=== PATIENT | female | born 1950 | race Caucasian/White ===

== ENCOUNTER 2022-10-21 22:47 | Inpatient (IN) | payer MEDICARE, OTHER ==
[~2022-10-21] VITALS: Ht 157.5 cm; Wt 65.8 kg
--- NOTE | 2022-10-21 23:00 | NUR ---
GPS ADMISSION NOTE, RECEIVED PATIENT FROM [facility]. PATIENT ARRIVED ON THIS UNIT AT 2300 VIA STRETCHER WITH 2 EMT ESCORTS. PATIENT ADMITTED ON A 5150 HOLD FOR DTS. PER HOLD PATIENT HAS BEEN HAVING INCREASED DEPRESSION AND ANXIETY OVER THE PAST TWO DAYS. PATIENT HAS A PLAN TO JUMP OFF THE THIRD FLOOR OF HER BUILDING. PATIENT HAS NO REGARDS TO HER SAFETY OR THE SAFETY OF OTHERS. THE 5150 WAS REVIEWED AND THE DOCUMENTATION IN THE 5150 HOLD APPEARS TO REFLECT THE PRESENTATION OF THE PATIENT. UPON FACE TO FACE ASSESSMENT PATIENT IS NOTED TO BEING DISHEVELED, DISORGANIZED, CONFUSED, COOPERATIVE, AND NEEDS REDIRECTION. PATIENT IS CURRENTLY LYING IN BED AWAKE, HAS NO S/S OR COMPLAINTS OF PAIN AT THIS TIME. PATIENT IS DISPLAYING NO S/S OF APPARENT DISTRESS. PATIENT BREATHING IS UNLABORED WITH EQUAL RISE AND FALL OF THE CHEST. PATIENT IS ALERT AND ORIENTATED X 3 ON ROOM AIR. PATIENT ASSISTED WITH TURING AND REPOSITIONING Q2HR AND PRN FOR COMFORT AND CIRCULATION. PATIENT HAS NO NEEDS AT THIS TIME. PATIENT DENIES SUICIDE IDEATIONS AND HOMICIDAL IDEATIONS AT THIS TIME. PATIENT REFUSED TO SIGNS ANY PAPER WORK AND IS TO TIRED. PATIENT ADVISED OF HER HOLD AND PATIENT RIGHTS BOOKLET GIVEN. PATIENT IS UNDER THE PSYCHIATRIC CARE OF DR. العراقي AND THE MEDICAL CARE OF CARLOS ALBERTO NAM NP. PATIENT BELONGINGS WERE INVENTORIED AND CHECKED FOR CONTRABAND. ALL CONTRABAND REMOVED AND STORED IN PATIENT HALLWAY LOCKER. PATIENT ADVANCED DIRECTIVES PREFERENCE, IMMUNIZATIONS QUESTIONER, AND NECESSARY PAPERWORK COMPLETED. PATIENT SKIN ASSESSMENT COMPLETED. PATIENT ORIENTATED TO ROOM, FLOOR, AND STAFF WITH ALL QUESTIONS ANSWERED. PATIENT EDUCATED ON THE USE OF THE CALL LIGHT. PATIENT BED SIDE RAILS ARE UP X 2 FOR SAFETY. PATIENT BED IS LOCKED, LOW, AND I WILL CONTINUE TO MONITOR THIS PATIENT Q 15 MIN WITH THE HELP OF STAFF TO MAINTAIN SAFETY.
[2022-10-21 23:50] VITALS: BP 125/75
[2022-10-21] MEDS ORDERED: ASPI-1420 PO (23:58)
[2022-10-21] MEDS ORDERED: CHLO25CA10 PO (23:59)
[2022-10-22] MEDS ORDERED: MAG HYDROX/AL HYDROX/SIMETH 30 ML UDC PO PRN
[2022-10-22] MEDS ORDERED: MAGNESIUM HYDROXIDE 30 ML UDC PO PRN
[2022-10-22] MEDS ORDERED: APIX2.5T PO (00:04)
[2022-10-22] MEDS ORDERED: FERR325T24 PO (00:07)
[2022-10-22] MEDS ORDERED: ESCI10TA PO (00:07)
[2022-10-22] MEDS ORDERED: FOLI-65 PO (00:09)
[2022-10-22] MEDS ORDERED: GABA600T12 PO (00:10)
[2022-10-22] MEDS ORDERED: NALT50TA PO (00:11)
[2022-10-22] MEDS ORDERED: LAMO200T10 PO (00:11)
[2022-10-22] MEDS ORDERED: HYDR-3973 PO (00:12)
[2022-10-22] MEDS ORDERED: SERT100T12 PO (00:13)
[2022-10-22] MEDS ORDERED: ROSU20TA32 PO (00:14)
[2022-10-22] MEDS: TEMAZEPAM 7.5 MG CAPSULE PO PRN (00:20)
[2022-10-22] MEDS ORDERED: BLOOD SUGAR DIAGNOSTIC 1 EACH STRIP IN ONE (00:30)
[2022-10-22 06:49] LABS: BASOPHILS % (AUTO) 0.6 % (0.0-2.0); EOSINOPHILS % (AUTO) 3.3 % (0.0-6.0); HEMATOCRIT 35 % (33-45); HEMOGLOBIN 11.4 g/dL (11.5-14.8); LYMPHOCYTES # (AUTO) 1.3 K/uL (0.8-4.8); LYMPHOCYTES % (AUTO) 29.8 % (20.0-44.0); MEAN CORPUSCULAR HGB CONC 32 g/dl (31.0-36.0); MEAN CORPUSCULAR VOLUME 94 fL (82-100); MONOCYTES # (AUTO) 0.5 K/uL (0.1-1.30); MONOCYTES % (AUTO) 11.2 % (2.0-12.0); NEUTROPHILS # (AUTO) 2.4 K/uL (1.8-8.9); NEUTROPHILS % (AUTO) 55.1 % (43.0-81.0); PLATELET COUNT (AUTO) 265 K/uL (150-450); RED BLOOD CELL COUNT(AUTO) 3.74 MIL/uL (4.0-5.2); WHITE BLOOD COUNT (AUTO) 4.3 K/uL (4.3-11.0)
[2022-10-22 07:07] LABS: CALCIUM, SERUM 8.5 mg/dL (8.5-10.1); CARBON DIOXIDE 26 mmol/L (21-32); CHLORIDE 105 mmol/L (98-107); CREATININE 0.7 mg/dL (0.6-1.3); GLUCOSE 107 mg/dL (74-106); SODIUM SERUM 138 mmol/L (136-145); UREA NITROGEN, BLOOD 12 mg/dL (7-18)
[2022-10-22 07:24] LABS: CHOLESTEROL 187 mg/dL (<200); HDL CHOLESTEROL 58 mg/dL (40-60); LDL 97 mg/dL (0-99); TRIGLYCERIDES 128 mg/dL (30-150)
[2022-10-22 08:00] VITALS: BP 124/73
[2022-10-22] MEDS: GABAPENTIN 300 MG CAPSULE PO SCH ×2 (08:26→16:15)
[2022-10-22] MEDS: ASPIRIN EC 81 MG TABLET.DR PO SCH (08:26)
[2022-10-22] MEDS: FERROUS SULFATE (325 MG) 325 MG/TAB TABLET PO SCH (08:26)
[2022-10-22] MEDS: ATORVASTATIN 40 MG TABLET PO SCH (08:26)
[2022-10-22] MEDS: MULTIPLE VIT (LYCOPENE/FA/MV,CA,IRON,MIN/LUT)1 TAB PO SCH (08:26)
[2022-10-22] MEDS: APIXABAN 2.5 MG TABLET PO SCH ×2 (08:27→16:16)
[2022-10-22] MEDS: HYDROCODONE/APAP 5/325MG TABLET PO PRN ×2 (10:29→22:42)
[2022-10-22] MEDS: ARIPIPRAZOLE 5 MG TABLET PO SCH (15:59)
[2022-10-22 16:00] VITALS: BP 124/72
[2022-10-22] MEDS: ACETAMINOPHEN 325 MG TABLET PO PRN (16:00)
--- NOTE | 2022-10-22 16:05 | NUR ---
RN-NOTES PATIENT REQUESTING TYLENOL FOR HEADACHE,TYLENOL 650 MG P.O GIVEN PRN ORDER. WILL CONT. MONITORING
[2022-10-22] MEDS: SERTRALINE HCL 50 MG TABLET PO SCH (16:18)
--- NOTE | 2022-10-22 16:37 | NUR ---
Initial Discharge Plan: Per pt., she currently resides at home[[address] [place] [address] [address] [facility] [address]; [phone]]alone. Per pt. she is uncertain if she would like to return home alone at this time. Pt. states she is not sure she can care for herself appropriately. Pt. is considering SNF for some time with possibility of returning home. SW will continue to collaborate with psychiatrist to form a safe & proper discharge plan.
--- NOTE | 2022-10-22 16:38 | NUR ---
Family Contact: Per pt., she would like to notify her son, Gumaro Ayers of her whereabouts. However, pt. cannot recall his number and states its in her cellphone. Staff will be alerted of this to possibly assist with getting her sons contact information.
--- NOTE | 2022-10-22 17:05 | NUR ---
RN-NOTES PATIENT LYING IN BED AWAKE,A/O X2 CALM,NO ACUTE DISTRESS NOTED.
--- NOTE | 2022-10-22 17:32 | NUR ---
RN-NOTES PATIENT LYING IN BED AWAKE,A/O X2 ,GUARDED,CALM NO ACUTE DISTRESS NOTE. ENCOURAGED TO ATTEND GROUPS BUT PREFERS TO STAY IN THE ROOM AND REST.COMPLIANT WITH MEDICATIONS.ALL NEEDS ATTENDED AND ANTICIPATED. AMBULATORY WITH WALKER.WILL CONT. MONITORING FOR SAFETY AND BEHAVIOR.WILL ENDORSE TO INCOMING NURSE FOR THE CONTINUITY OF CARE
[2022-10-22 20:00] VITALS: BP 111/71
--- NOTE | 2022-10-22 22:43 | NUR ---
RN NOTE: PAIN PATIENT C/O LEFT LEG PAIN 02/26 AND REQUESTED NORCO AT THIS TIME. PRN NORCO 5-325 MG PO ADMINISTERED PER MD ORDER. WILL CONTINUE TO MONITOR FOR ANY CHANGES.
[2022-10-23 08:00] VITALS: BP 127/70
[2022-10-23] MEDS: ATORVASTATIN 40 MG TABLET PO SCH (08:19)
[2022-10-23] MEDS: ARIPIPRAZOLE 5 MG TABLET PO SCH (08:21)
[2022-10-23] MEDS: GABAPENTIN 300 MG CAPSULE PO SCH ×2 (08:21→16:24)
[2022-10-23] MEDS: FERROUS SULFATE (325 MG) 325 MG/TAB TABLET PO SCH (08:21)
[2022-10-23] MEDS: MULTIPLE VIT (LYCOPENE/FA/MV,CA,IRON,MIN/LUT)1 TAB PO SCH (08:21)
[2022-10-23] MEDS: ASPIRIN EC 81 MG TABLET.DR PO SCH (08:21)
[2022-10-23] MEDS: SERTRALINE HCL 50 MG TABLET PO SCH ×2 (08:21→16:24)
[2022-10-23] MEDS: ACETAMINOPHEN 325 MG TABLET PO PRN ×2 (08:21→16:24)
[2022-10-23] MEDS: APIXABAN 2.5 MG TABLET PO SCH ×2 (08:22→16:25)
[2022-10-23] MEDS: HYDROCODONE/APAP 5/325MG TABLET PO PRN (12:21)
[2022-10-23 16:00] VITALS: BP 116/68
--- NOTE | 2022-10-23 17:44 | NUR ---
RN-NOTES PATIENT IS VISIBLE IN THE UNIT,A/O X2 ,CALM NO ACUTE DISTRESS NOTE..COMPLIANT WITH MEDICATIONS. ABLE TO MAKE NEEDS KNOWN TO THE STAFF. ALL NEEDS ATTENDED AND ANTICIPATED. AMBULATORY WITH WALKER.WILL CONT. MONITORING FOR SAFETY AND BEHAVIOR.WILL ENDORSE TO INCOMING NURSE FOR THE CONTINUITY OF CARE
--- NOTE | 2022-10-23 20:39 | NUR ---
RN NOTES: PATIENT WATCHING TV IN ACTIVITY ROOM . A/OX2. NO APPARENT DISTRESS NOTED, PATIENT EASILY AGITATED/IRRITABLE, PARANOID ,GUARDER NEEDY ,DEMENDING DISORGNIZED,GUARDED,FOCUS ON PRN PAIN MEDS, NEEDS FREQUENTLY REDIRECTIONS, MED COMPLIANT WITH ENCOURAGEMENT ,DENIES SI/HI/AVH AT THIS TIME. SAFETY PRECAUTIONS MAINTAINED. WILL CONTINUE TO MONITOR Q15MIN ROUNDS FOR SAFETY AND BEHAVIOR.
[2022-10-23 21:02] VITALS: BP 117/78
[2022-10-23] MEDS: clonazePAM 0.5 MG TABLET PO PRN (22:45)
--- NOTE | 2022-10-23 22:47 | NUR ---
RN NOTES: ANXIETY PT. C/O FEELING ANXIOUS PARANOID RESTLESS, PRN KLONOPIN 0.5 MG PO GIVEN PER PT. REQUEST , WILL CONTINUE TO MONITOR.
[2022-10-24] MEDS: HYDROCODONE/APAP 5/325MG TABLET PO PRN (00:32)
--- NOTE | 2022-10-24 00:35 | NUR ---
RN NOTES: PAIN PT. C/O LEFT FOOT PAIN 03/28 , PRN NARCO 5-325 MG PO GIVEN PER PT. REQUEST, WILL CONTINUE TO MONITOR.
[2022-10-24 08:00] VITALS: BP 129/75
[2022-10-24] MEDS: ASPIRIN EC 81 MG TABLET.DR PO SCH (08:38)
[2022-10-24] MEDS: ATORVASTATIN 40 MG TABLET PO SCH (08:38)
[2022-10-24] MEDS: ARIPIPRAZOLE 5 MG TABLET PO SCH (08:38)
[2022-10-24] MEDS: FERROUS SULFATE (325 MG) 325 MG/TAB TABLET PO SCH (08:39)
[2022-10-24] MEDS: MULTIPLE VIT (LYCOPENE/FA/MV,CA,IRON,MIN/LUT)1 TAB PO SCH (08:39)
[2022-10-24] MEDS: GABAPENTIN 300 MG CAPSULE PO SCH ×2 (08:39→17:04)
[2022-10-24] MEDS: APIXABAN 2.5 MG TABLET PO SCH ×2 (08:39→17:04)
[2022-10-24] MEDS: SERTRALINE HCL 50 MG TABLET PO SCH ×2 (08:48→17:04)
[2022-10-24] MEDS: ACETAMINOPHEN 325 MG TABLET PO PRN ×3 (10:13→22:13)
[2022-10-24 16:00] VITALS: BP 109/79
[2022-10-24 20:26] VITALS: BP 108/71
[2022-10-24] MEDS: TEMAZEPAM 7.5 MG CAPSULE PO PRN (22:12)
--- NOTE | 2022-10-25 04:37 | NUR ---
RN CLOSING NOTES: ALERT AND ORIENTATED X3 AMBULATES IN THE CORRIDOR FREQUENTLY HER FOCUS IS HER LEFT KNEES PAIN AND REQUESTING PAIN MEDICATION. TYLENOL ORDERED FOR THE KNEE PAIN AND APPEARS EFFECTIVE SHE AMB USING A WALKER AND IS STEADY ON HER LEGS. ENJOYED SNACKS IN THE EARLY NIGHT BEFORE GOING TO BED [facility] CONTACT GETS ALONG WITH HER ROOM MATE COOPERATIVE ABOUT MEDICATION TAKING REQUESTED A SLEEPING PILL AND RESTORIL GIVEN ND EFFECTIVE
[2022-10-25] MEDS: HYDROCODONE/APAP 5/325MG TABLET PO PRN ×2 (05:23→17:54)
[2022-10-25 08:00] VITALS: BP 122/79
[2022-10-25] MEDS: ASPIRIN EC 81 MG TABLET.DR PO SCH (09:36)
[2022-10-25] MEDS: MULTIPLE VIT (LYCOPENE/FA/MV,CA,IRON,MIN/LUT)1 TAB PO SCH (09:36)
[2022-10-25] MEDS: ARIPIPRAZOLE 5 MG TABLET PO SCH (09:36)
[2022-10-25] MEDS: FERROUS SULFATE (325 MG) 325 MG/TAB TABLET PO SCH (09:38)
[2022-10-25] MEDS: ATORVASTATIN 40 MG TABLET PO SCH (09:38)
[2022-10-25] MEDS: GABAPENTIN 300 MG CAPSULE PO SCH ×2 (09:38→16:33)
[2022-10-25] MEDS: APIXABAN 2.5 MG TABLET PO SCH ×2 (09:38→16:33)
[2022-10-25] MEDS: SERTRALINE HCL 50 MG TABLET PO SCH ×2 (09:39→16:34)
[2022-10-25] MEDS: ACETAMINOPHEN 325 MG TABLET PO PRN ×2 (13:33→23:59)
--- NOTE | 2022-10-25 13:35 | NUR ---
NURSE NOTE: PT C/O PAIN AT THIS TIME AND REQUESTED TYL AT THIS TIME. ADMINISTERED ORDERED. PT RICARDO WELL. WILL CONT TO MONITOR.
--- NOTE | 2022-10-25 14:37 | NUR ---
ZEHRA Note: SW met with patient and pt stated that she is worried that she is unable to call her son. She stated that her son's correct number is in her cellphone. SW notified Omar to help with this. Pt stated that she would want to temporarily going to a prison before going back home. SW will help pt find placement.
--- NOTE | 2022-10-25 15:00 | NUR ---
SNF Referral: ZEHRA sent clinicals to [facility] to Amalia felix ([phone]) for placement. SW sent H & P, progress notes, and medication list.
[2022-10-25 16:00] VITALS: BP 147/67
--- NOTE | 2022-10-25 19:03 | NUR ---
PT C/O PAIN ON LEFT KNEE AT 1750 AND REQUESTED NORCO AT THIS TIME. ADMINISTERED ORDERED AND EFFECTIVE. WILL CONT TO MONITOR.
[2022-10-25 21:13] VITALS: BP 123/67
[2022-10-25] MEDS: TEMAZEPAM 7.5 MG CAPSULE PO PRN (22:05)
[2022-10-26] MEDS: HYDROCODONE/APAP 5/325MG TABLET PO PRN ×2 (07:20→19:21)
[2022-10-26 08:00] VITALS: BP 134/76
--- NOTE | 2022-10-26 08:14 | NUR ---
SNF Contact: SW spoke with [facility] to Amalia admin ([phone]) who stated they cannot accept pt due to behavioral issues.
--- NOTE | 2022-10-26 08:14 | NUR ---
SNF Referral: ZEHRA sent clinicals to Jill elizondo from [facility] ([phone]) for placement. SW sent H & P, progress notes, and medication list.
--- NOTE | 2022-10-26 09:33 | NUR ---
ZEHRA Family Contact: ZEHRA contacted pt's son Gumaro ([phone]) and was unable to leave a voicemail due to mailbox not being set up.
[2022-10-26] MEDS: ARIPIPRAZOLE 5 MG TABLET PO SCH (09:36)
[2022-10-26] MEDS: FERROUS SULFATE (325 MG) 325 MG/TAB TABLET PO SCH (09:36)
[2022-10-26] MEDS: GABAPENTIN 300 MG CAPSULE PO SCH ×2 (09:37→16:13)
[2022-10-26] MEDS: MULTIPLE VIT (LYCOPENE/FA/MV,CA,IRON,MIN/LUT)1 TAB PO SCH (09:37)
[2022-10-26] MEDS: ATORVASTATIN 40 MG TABLET PO SCH (09:37)
[2022-10-26] MEDS: SERTRALINE HCL 50 MG TABLET PO SCH ×2 (09:37→16:14)
[2022-10-26] MEDS: ASPIRIN EC 81 MG TABLET.DR PO SCH (09:38)
[2022-10-26] MEDS: APIXABAN 2.5 MG TABLET PO SCH ×2 (09:40→16:16)
[2022-10-26] MEDS: clonazePAM 0.5 MG TABLET PO PRN ×3 (11:18→20:12)
--- NOTE | 2022-10-26 11:37 | NUR ---
Social Work Note/Substance Abuse Intervention: Patient was provided with a brief substance abuse intervention and referred to [facility] ([phone]), [facility] ([phone]), and [facility] ([phone]) for smoking marijuana.
--- NOTE | 2022-10-26 12:39 | NUR ---
SNF Contact: SW received a call from Jill elizondo from [facility] ([phone]) who stated pt is accepted.
[2022-10-26] MEDS: ACETAMINOPHEN 325 MG TABLET PO PRN (14:02)
[2022-10-26 16:00] VITALS: BP 109/70
[2022-10-26 20:54] VITALS: BP 124/84
[2022-10-26] MEDS: TEMAZEPAM 7.5 MG CAPSULE PO PRN (21:34)
[2022-10-27] MEDS: ACETAMINOPHEN 325 MG TABLET PO PRN ×2 (03:02→11:24)
[2022-10-27] MEDS: HYDROCODONE/APAP 5/325MG TABLET PO PRN ×2 (07:56→20:19)
[2022-10-27 08:00] VITALS: BP 143/82
--- NOTE | 2022-10-27 08:00 | NUR ---
NURSE NOTE: PT C/O PAIN AT LEVEL 8/10. REQUESTED NORCO AT THIS TIME. NORCO ADMIN ORDERED. PT RICARDO WELL. WILL CONT TO MONITOR.
[2022-10-27] MEDS: SERTRALINE HCL 50 MG TABLET PO SCH ×2 (08:27→17:21)
[2022-10-27] MEDS: ARIPIPRAZOLE 5 MG TABLET PO SCH (08:28)
[2022-10-27] MEDS: MULTIPLE VIT (LYCOPENE/FA/MV,CA,IRON,MIN/LUT)1 TAB PO SCH (08:28)
[2022-10-27] MEDS: FERROUS SULFATE (325 MG) 325 MG/TAB TABLET PO SCH (08:28)
[2022-10-27] MEDS: GABAPENTIN 300 MG CAPSULE PO SCH ×2 (08:28→17:21)
[2022-10-27] MEDS: APIXABAN 2.5 MG TABLET PO SCH ×2 (08:29→17:21)
[2022-10-27] MEDS: ASPIRIN EC 81 MG TABLET.DR PO SCH (08:29)
--- NOTE | 2022-10-27 09:00 | NUR ---
NURSE NOTE: PT STATED THAT SHE IS FEELING BETTER. VERY LITTLE PAIN AT THIS TIME 10/29. NORCO EFFECTIVE. WILL CONT TO MONITOR.
[2022-10-27] MEDS: ATORVASTATIN 40 MG TABLET PO SCH (11:24)
--- NOTE | 2022-10-27 11:25 | NUR ---
NURSE NOTE: PT REQUESTED TYL AT THIS TIME, STATING THAT SHE DOES NOT WANT HER PAIN TO GET ELEVATED. TYL PO ADMIN ORDERED. WILL CONT TO MONITOR.
[2022-10-27] MEDS: clonazePAM 0.5 MG TABLET PO PRN ×2 (12:32→17:33)
--- NOTE | 2022-10-27 12:32 | NUR ---
NURSE NOTE: PT STATED THAT SHE IS FEELING ANXIOUS AT THIS TIME AND REQUESTED KLONOPIN. KLONOPIN PO ADMINISTERED ORDERED. PT RICARDO WELL. ALSO INSTRUCTED PT TO REST AT THIS TIME AND TAKE DEEP SLOW BREATHS. WILL CONT TO MONITOR.
--- NOTE | 2022-10-27 12:49 | NUR ---
Court Notification: SW attempted to contact pt's son Gumaro ([phone]) but was unable to leave a voicemail of 0820 hearing.
--- NOTE | 2022-10-27 13:30 | NUR ---
NURSE NOTE: PT CALM AT THIS TIME. KLONOPIN EFFECTIVE. WILL CONT TO MONITOR.
[2022-10-27 16:00] VITALS: BP 107/59
--- NOTE | 2022-10-27 16:26 | NUR ---
Court Hearing: Patient's court hearing for 5260 was today and it was upheld for GD.
--- NOTE | 2022-10-27 17:35 | NUR ---
NURSE NOTE: PT ANXIOUS AT THIS TIME. REQUESTED KLONOPIN. KLONOPIN ADMINISTERED ORDERED. PT RICARDO WELL. WILL CONT TO MONITOR.
--- NOTE | 2022-10-27 20:21 | NUR ---
RN NOTE: PAIN PATIENT C/O RIGHT/LEFT LEG/ANKLE PAIN 02/26 AND REQUESTED TO TAKE NORCO AT THIS TIME. PRN NORCO 5-325 MG PO ADMINISTERED ORDERED BY MD. WILL CONTINUE TO MONITOR FOR ANY CHANGES.
[2022-10-27] MEDS: TEMAZEPAM 7.5 MG CAPSULE PO PRN (21:32)
--- NOTE | 2022-10-27 21:34 | NUR ---
RN NOTE: INSOMNIA PATIENT C/O SLEEPLESSNESS AND WANTED TO TAKE SLEEPING MEDICINE. PRN RESTORIL 7.5 MG PO ADMINISTERED PER MD ORDER. WILL CONTINUE TO MONITOR FOR SAFETY, BEHAVIOR AND ANY CHANGE OF CONDITION.
[2022-10-27 21:37] VITALS: BP 117/81
[2022-10-28] MEDS: ACETAMINOPHEN 325 MG TABLET PO PRN ×2 (00:01→13:06)
[2022-10-28 08:00] VITALS: BP 98/58
[2022-10-28] MEDS: MULTIPLE VIT (LYCOPENE/FA/MV,CA,IRON,MIN/LUT)1 TAB PO SCH (08:34)
[2022-10-28] MEDS: ATORVASTATIN 40 MG TABLET PO SCH (08:34)
[2022-10-28] MEDS: ARIPIPRAZOLE 5 MG TABLET PO SCH (08:34)
[2022-10-28] MEDS: FERROUS SULFATE (325 MG) 325 MG/TAB TABLET PO SCH (08:35)
[2022-10-28] MEDS: ASPIRIN EC 81 MG TABLET.DR PO SCH (08:35)
[2022-10-28] MEDS: HYDROCODONE/APAP 5/325MG TABLET PO PRN ×2 (08:35→20:40)
[2022-10-28] MEDS: clonazePAM 0.5 MG TABLET PO PRN ×3 (08:35→17:01)
[2022-10-28] MEDS: GABAPENTIN 300 MG CAPSULE PO SCH ×2 (08:35→17:01)
[2022-10-28] MEDS: APIXABAN 2.5 MG TABLET PO SCH ×2 (08:39→17:02)
[2022-10-28] MEDS: SERTRALINE HCL 50 MG TABLET PO SCH ×2 (08:41→17:02)
[2022-10-28 16:00] VITALS: BP 104/54
--- NOTE | 2022-10-28 16:09 | NUR ---
PATIENT C/O SORE THROAT, STUFFY NOSE. REPORTED TO DR CRAMER. NEW ORDER FOR MUCINEX BID, AND COVID TEST. ORDERS IN PLACE. CHARGE NURSE AWARE. YOKO Castro RN, BSN
--- NOTE | 2022-10-28 19:45 | NUR ---
GPS RN NOTES RECEIVED LAYING ON BED,A/O X2,COOPERATIVE,ABLE TO RESPOND WITH SIMPLE QUESTION,AMBULATE WITH WALKER,FALL RISK,REDIRECTABLE.WILL CONTINUE TO MONITOR BEHAVIOR AND MANAGE ACCORDINGLY.
[2022-10-28 20:00] VITALS: BP 101/68
[2022-10-28] MEDS: GUAIFENESIN LA 600 MG TABLET.SA PO SCH (20:34)
--- NOTE | 2022-10-28 20:40 | NUR ---
GPS RN NOTES C/O PAIN ON THE LEFT FOOT 6/10 ON PAIN SCALE,MEDICATED WITH NORCO 5/325MG,1 TAB PO GIVEN PER PATIENT REQUEST.
[2022-10-28] MEDS: TEMAZEPAM 7.5 MG CAPSULE PO PRN (23:23)
--- NOTE | 2022-10-28 23:23 | NUR ---
GPS RN NOTES PATIENT COMMENTED ' I WANT TO SLEEP NOW,CAN IN GET MY SLEEPING PILL'.GIVEN RESTORIL 7.5MG PO ORDERED.
--- NOTE | 2022-10-29 02:00 | NUR ---
GPS RN NOTES SLEEPING THIS TIME,KEPT WARM AND COMFORTABLE.
[2022-10-29] MEDS: ACETAMINOPHEN 325 MG TABLET PO PRN ×2 (04:44→12:40)
[2022-10-29 08:00] VITALS: BP 117/65
[2022-10-29] MEDS: MULTIPLE VIT (LYCOPENE/FA/MV,CA,IRON,MIN/LUT)1 TAB PO SCH (08:54)
[2022-10-29] MEDS: ASPIRIN EC 81 MG TABLET.DR PO SCH (08:54)
[2022-10-29] MEDS: ARIPIPRAZOLE 5 MG TABLET PO SCH (08:54)
[2022-10-29] MEDS: FERROUS SULFATE (325 MG) 325 MG/TAB TABLET PO SCH (08:54)
[2022-10-29] MEDS: GUAIFENESIN LA 600 MG TABLET.SA PO SCH ×2 (08:54→21:02)
[2022-10-29] MEDS: SERTRALINE HCL 50 MG TABLET PO SCH ×2 (08:55→17:43)
[2022-10-29] MEDS: ATORVASTATIN 40 MG TABLET PO SCH (08:55)
[2022-10-29] MEDS: GABAPENTIN 300 MG CAPSULE PO SCH ×2 (08:55→17:42)
--- NOTE | 2022-10-29 08:55 | NUR ---
PATIENT COMPLAINS OF PAIN. NORCO GIVEN
[2022-10-29] MEDS: HYDROCODONE/APAP 5/325MG TABLET PO PRN ×2 (08:56→20:58)
[2022-10-29] MEDS: APIXABAN 2.5 MG TABLET PO SCH ×2 (08:58→17:42)
--- NOTE | 2022-10-29 12:41 | NUR ---
PATIENT COMPLAINING OF PAIN AGAIN. TYLENOL GIVEN
[2022-10-29 16:00] VITALS: BP 122/88
--- NOTE | 2022-10-29 18:15 | NUR ---
PATIENT WALKING AROUND IN A GOOD MOOD BECAUSE SON CALLED. ASKS FOR PAIN MEDS BUT WAS NOT GIVEN ANY AND DIDNT ASK FOR MORE
[2022-10-29 20:10] VITALS: BP 124/77
[2022-10-29 20:52] VITALS: BP 124/77
--- NOTE | 2022-10-29 21:00 | NUR ---
RN NOTE: PAIN PATIENT C/O LEFT ANKLE PAIN 03/28 AND WANTED TO TAKE NORCO AT THIS TIME. PRN NORCO 5-325 MG PO ADMINISTERED. WILL CONTINUE TO MONITOR FOR ANY CHANGE OF CONDITION.
[2022-10-29] MEDS: TEMAZEPAM 7.5 MG CAPSULE PO PRN (22:48)
--- NOTE | 2022-10-29 23:29 | NUR ---
RN NOTE: INDIGESTION PATIENT C/O INDIGESTION/UPSET STOMACH AND REQUESTED TO TAKE MEDICINE. PRN MAALOX 30 ML PO ADMINISTERED. WILL CONTINUE TO MONITOR.
--- NOTE | 2022-10-30 04:22 | NUR ---
RN NOTE PATIENT C/O NAUSEA OCCASIONALLY, LOOSE BOWEL MOVEMENT X3-4 WITH ABDOMINAL PAIN, ABDOMINAL QUADRANT NOT SPECIFIED BY THE PATIENT. MYLANTA WAS ADMINISTERED EARLIER FOR UPSET STOMACH BUT INEFFECTIVE. CALLED TRAFFIC SERGEANT DOCTOR MAGALY MONTEJO AND LEFT A MESSAGE, WAITING FOR MAGALY TO CALL BACK. VITALS CHECKED 108/71, 99, 18, 98F, 93% ON ROOM AIR. PATIENT REQUESTED FOR APPLE JUICE AND SIPPING ON IT TOLERATED. WILL CONTINUE TO MONITOR CLOSELY FOR ANY CHANGE OF CONDITION.
--- NOTE | 2022-10-30 05:25 | NUR ---
RN NOTE MAGALY MONTEJO CALLED BACK, INFORMED HIM ABOUT PATIENT'S CONDITION. MAGALY ORDERED ZOFRAN 4 MG PO Q6H PRN, IMODIUM 2 MG PO Q4H PRN (NTE 16 MG/24HRS), STOOL CULTURE, C DIFF SPECIMEN TO BE COLLECTED. ALL NEW ORDERS NOTED AND CARRIED OUT.
--- NOTE | 2022-10-30 05:29 | NUR ---
STOOL CULTURE SENT TO LAB.
[2022-10-30] MEDS ORDERED: LOPERAMIDE HCL (2 MG CAP) 2 MG CAPSULE PO PRN (05:30)
[2022-10-30] MEDS ORDERED: ONDANSETRON HCL 4 MG/5 ML SOLUTION PO PRN (05:30)
--- NOTE | 2022-10-30 05:51 | NUR ---
RN NOTE IMODIUM AND ZOFRAN ADMINISTERED ORDERED BY MD. WILL CONTINUE TO MONITOR CLOSELY FOR ANY CHANGE OF CONDITION.
[2022-10-30] MEDS ORDERED: ONDANSETRON 4 MG TAB.RAPDIS PO PRN (06:00)
[2022-10-30] MEDS: ACETAMINOPHEN 325 MG TABLET PO PRN ×2 (06:23→19:48)
--- NOTE | 2022-10-30 06:25 | NUR ---
RN NOTE: HEADACHE PATIENT C/O HEADACHE AND WANTED TO TAKE TYLENOL AT THIS TIME. PRN TYLENOL 650 MG PO ADMINISTERED PER MD ORDER. NAUSEA/VOMITING HAS IMPROVED PER PATIENT. NO LOOSE BOWEL MOVEMENT NOTED SINCE THE IMODIUM WAS GIVEN. PATIENT IS ISOLATED IN ISOLATION ROOM FOR POSSIBLE C DIFF. CONTACT PRECAUTIONS MAINTAINED. WILL ENDORSE TO AM RN FOR CONTINUITY OF CARE.
[2022-10-30 08:00] VITALS: BP 100/66
[2022-10-30] MEDS: ATORVASTATIN 40 MG TABLET PO SCH (09:20)
[2022-10-30] MEDS: FERROUS SULFATE (325 MG) 325 MG/TAB TABLET PO SCH (09:20)
[2022-10-30] MEDS: ASPIRIN EC 81 MG TABLET.DR PO SCH (09:20)
[2022-10-30] MEDS: GUAIFENESIN LA 600 MG TABLET.SA PO SCH ×2 (09:20→20:45)
[2022-10-30] MEDS: SERTRALINE HCL 50 MG TABLET PO SCH ×2 (09:20→16:45)
[2022-10-30] MEDS: MULTIPLE VIT (LYCOPENE/FA/MV,CA,IRON,MIN/LUT)1 TAB PO SCH (09:20)
[2022-10-30] MEDS: GABAPENTIN 300 MG CAPSULE PO SCH ×2 (09:21→16:45)
[2022-10-30] MEDS: clonazePAM 0.5 MG TABLET PO PRN (09:21)
[2022-10-30] MEDS: ARIPIPRAZOLE 5 MG TABLET PO SCH (09:26)
[2022-10-30] MEDS: APIXABAN 2.5 MG TABLET PO SCH ×2 (09:27→17:20)
[2022-10-30] MEDS: HYDROCODONE/APAP 5/325MG TABLET PO PRN (14:37)
[2022-10-30 16:00] VITALS: BP 113/69
--- NOTE | 2022-10-30 19:59 | NUR ---
RN NOTES: PATIENT RESTING IN HER ROOM . A/OX3. NO APPARENT DISTRESS NOTED, PATIENT EASILY AGITATED/IRRITABLE, PARANOID ,GUARDER NEEDY ,DEMENDING DISORGNIZED,GUARDED,FOCUS ON PRN PAIN MEDS, NEEDS FREQUENTLY REDIRECTIONS, MED COMPLIANT WITH ENCOURAGEMENT ,DENIES SI/HI/AVH AT THIS TIME. SAFETY PRECAUTIONS MAINTAINED. WILL CONTINUE TO MONITOR Q15MIN ROUNDS FOR SAFETY AND BEHAVIOR.
[2022-10-30 20:21] VITALS: BP 111/55
[2022-10-30] MEDS: TEMAZEPAM 7.5 MG CAPSULE PO PRN (21:57)
--- NOTE | 2022-10-31 07:18 | NUR ---
RN NOTES: PT. SLEPT 8 HOURS , PT. DENIES ANY PAIN OR DISCOMFORT, NO ACUTE DISTRESS NOTED ENDORSES TO AM NURSE. Addendum: 10/31/22 at 0726 by PAOLA BARR RN RN NOTES: PT. SLEPT 7 HOURS , PT. DENIES ANY PAIN OR DISCOMFORT, NO ACUTE DISTRESS NOTED, PT. RESTING WELL IN ALL SHIFT ,ENDORSES TO AM NURSE.
[2022-10-31 08:00] VITALS: BP 106/75
[2022-10-31] MEDS: ATORVASTATIN 40 MG TABLET PO SCH (09:15)
[2022-10-31] MEDS: MULTIPLE VIT (LYCOPENE/FA/MV,CA,IRON,MIN/LUT)1 TAB PO SCH (09:15)
[2022-10-31] MEDS: GABAPENTIN 300 MG CAPSULE PO SCH ×2 (09:15→16:22)
[2022-10-31] MEDS: FERROUS SULFATE (325 MG) 325 MG/TAB TABLET PO SCH (09:15)
[2022-10-31] MEDS: HYDROCODONE/APAP 5/325MG TABLET PO PRN ×2 (09:16→18:38)
[2022-10-31] MEDS: GUAIFENESIN LA 600 MG TABLET.SA PO SCH ×2 (09:16→21:56)
[2022-10-31] MEDS: ARIPIPRAZOLE 5 MG TABLET PO SCH (09:16)
[2022-10-31] MEDS: ASPIRIN EC 81 MG TABLET.DR PO SCH (09:16)
[2022-10-31] MEDS: APIXABAN 2.5 MG TABLET PO SCH ×2 (09:17→16:23)
[2022-10-31] MEDS: SERTRALINE HCL 50 MG TABLET PO SCH ×2 (09:17→16:22)
[2022-10-31] MEDS: ACETAMINOPHEN 325 MG TABLET PO PRN ×2 (15:30→22:02)
[2022-10-31 16:00] VITALS: BP 123/69
[2022-10-31 20:13] VITALS: BP 125/70
[2022-10-31] MEDS: TEMAZEPAM 7.5 MG CAPSULE PO PRN (22:02)
--- NOTE | 2022-10-31 22:04 | NUR ---
Pt c/o left leg pain 11/26. Tylenol 650 mg po prn given as ordered. C/O insomnia. Least restrictive measures ineffective. Restoril 7.5 mg po prn given as ordered. Will continue to monitor.
--- NOTE | 2022-10-31 23:10 | NUR ---
Post 1 hr Restoril effective. Pt asleep easy to arouse. Bed at low position and bed alarm on. Frequent visual check done for safety. Tylenol effective. [place] 09/28. Will continue to monitor.
[2022-11-01] MEDS: HYDROCODONE/APAP 5/325MG TABLET PO PRN ×4 (02:51→22:36)
--- NOTE | 2022-11-01 02:51 | NUR ---
Pt awake and c/o left leg pain. [place] 5-325 mg po prn given as ordered. Will continue to monitor.
--- NOTE | 2022-11-01 04:00 | NUR ---
Post 1 hr [place] effective. UT 0/10. Will continue to monitor. Will endorse to next shift.
[2022-11-01 08:00] VITALS: BP 100/61
[2022-11-01] MEDS: ARIPIPRAZOLE 5 MG TABLET PO SCH (09:03)
[2022-11-01] MEDS: ASPIRIN EC 81 MG TABLET.DR PO SCH (09:04)
[2022-11-01] MEDS: MULTIPLE VIT (LYCOPENE/FA/MV,CA,IRON,MIN/LUT)1 TAB PO SCH (09:04)
[2022-11-01] MEDS: APIXABAN 2.5 MG TABLET PO SCH ×2 (09:05→16:30)
[2022-11-01] MEDS: ATORVASTATIN 40 MG TABLET PO SCH (09:06)
[2022-11-01] MEDS: GUAIFENESIN LA 600 MG TABLET.SA PO SCH ×2 (09:06→21:33)
[2022-11-01] MEDS: FERROUS SULFATE (325 MG) 325 MG/TAB TABLET PO SCH (09:06)
[2022-11-01] MEDS: SERTRALINE HCL 50 MG TABLET PO SCH ×2 (09:07→16:29)
[2022-11-01] MEDS: GABAPENTIN 300 MG CAPSULE PO SCH ×2 (09:08→16:29)
--- NOTE | 2022-11-01 13:44 | NUR ---
RN-CO: Patient stated " I don't have bowel movement since last night."
[2022-11-01] MEDS: ACETAMINOPHEN 325 MG TABLET PO PRN ×2 (14:28→20:01)
[2022-11-01 16:00] VITALS: BP 118/71
[2022-11-01 20:12] VITALS: BP 136/66
[2022-11-01] MEDS: TEMAZEPAM 7.5 MG CAPSULE PO PRN (21:43)
--- NOTE | 2022-11-01 22:32 | NUR ---
RN NOTE RELAYED TO [facility] ON-CALL DR. VENCES THAT PATIENT REMAINS ON ISOLATION FOR C-DIFF. NO EPISODES OF DIARRHEA SINCE LAST NIGHT. PATIENT HAS NO C/O ABDOMINAL PAIN. C-DIFF RESULT STILL PENDING. DR. VENCES ORDERED TO DISCONTINUE ISOLATION.
[2022-11-02] MEDS: ACETAMINOPHEN 325 MG TABLET PO PRN ×2 (02:55→12:59)
[2022-11-02] MEDS: HYDROCODONE/APAP 5/325MG TABLET PO PRN (06:50)
[2022-11-02 08:00] VITALS: BP 106/63
--- NOTE | 2022-11-02 08:21 | NUR ---
SW Discharge Note: Patient will be discharged to [facility] to [facility] [address] [place] [address]; ([phone]). Please arrange ambulance transportation. Forest Fire Management Officer spoke with Jill, [employer] Former at [facility] ([phone]) who stated patient will be accepted at facility today. Patient is alert and oriented x3 and not able to plan for care. Patient denies any suicidal or homicidal ideations. Patient is aware and agreeable with discharge plans. SW attempted to call pts son Gumaro ([phone]) and was unable to leave a voicemail. Patient will continue to follow-up with (psychiatrist) Dr. Welsh located [address] [facility] [address], [place] [address]; ([phone]) and (digital marketing officer) Dr. Ruiz [address] [facility] [address], [place] [address]; ([phone]). Patient presents with euthymic mood and congruent affect.
[2022-11-02] MEDS: ATORVASTATIN 40 MG TABLET PO SCH (09:28)
[2022-11-02] MEDS: MULTIPLE VIT (LYCOPENE/FA/MV,CA,IRON,MIN/LUT)1 TAB PO SCH (09:28)
[2022-11-02] MEDS: FERROUS SULFATE (325 MG) 325 MG/TAB TABLET PO SCH (09:28)
[2022-11-02] MEDS: GABAPENTIN 300 MG CAPSULE PO SCH (09:28)
[2022-11-02] MEDS: SERTRALINE HCL 50 MG TABLET PO SCH (09:28)
[2022-11-02] MEDS: ARIPIPRAZOLE 5 MG TABLET PO SCH (09:29)
[2022-11-02] MEDS: APIXABAN 2.5 MG TABLET PO SCH (09:32)
[2022-11-02] MEDS: ASPIRIN EC 81 MG TABLET.DR PO SCH (09:33)
[2022-11-02] MEDS: GUAIFENESIN LA 600 MG TABLET.SA PO SCH (09:35)
--- NOTE | 2022-11-02 13:22 | NUR ---
transfer and line up worker Note: [facility] to [facility] [address] [place] [id number]; ([phone]). Patient is alert and oriented x3. No acute distress noted. Patient denies any suicidal or homicidal ideations. Patient is aware and agreeable with discharge plans. All belongings account for. Skin is intact. Picked up via ambulance in a gurney accompanied by 2 EMT personnel in stable condition.
== END 2022-11-02 13:25 | DRG 885 ==
LOC: GPS 22:47
PROVIDERS: ADMIT Psychiatry & Neurology Psychiatry; ATTEND Internal Medicine
DX: F33.2 Major depressive disorder, recurrent severe without psychotic features (principal); R45.851 Suicidal ideations; F29 Unspecified psychosis not due to a substance or known physiological condition; F41.9 Anxiety disorder, unspecified; F10.10 Alcohol abuse, uncomplicated; Y90.9 Presence of alcohol in blood, level not specified; F12.10 Cannabis abuse, uncomplicated; Z79.01 Long term (current) use of anticoagulants; Z79.82 Long term (current) use of aspirin; Z79.899 Other long term (current) drug therapy; Z87.81 Personal history of (healed) traumatic fracture; G40.909 Epilepsy, unspecified, not intractable, without status epilepticus; L98.9 Disorder of the skin and subcutaneous tissue, unspecified; E78.5 Hyperlipidemia, unspecified; I10 Essential (primary) hypertension; Z91.51 Personal history of suicidal behavior; F22 Delusional disorders
CPT/HCPCS: 36415; 80048-TC; 80061-TC; 82962-TC; 85025-TC; 97110-TC; 97112-TC; 97116-TC; 97530-TC; Q0162